=== PATIENT | female | born 1990 | race Two or more races ===

== ENCOUNTER 2020-03-30 09:10 | Emergency (ER) | payer OTHER ==
[~2020-03-30] VITALS: Ht 170.2 cm; Wt 67.1 kg
[2020-03-30 09:38] LABS: Basophils # (auto) 0 10 ^3/uL (0-0.2); Basophils % (auto) 0.5 % (0.0-2.0); Eosinophils # (auto) 0.1 10 ^3/uL (0-0.8); Eosinophils % (auto) 1.3 % (0.0-7.0); Hematocrit 41.8 % (36.0-46.0); Hemoglobin 14.3 g/dL (12.2-16.2); Lymphocytes % (auto) 32.9 % (10.0-50.0); Mean Corpuscular Hemoglobin 31.1 pg (28.0-32.0); Mean Corpuscular Hgb Conc. 34.1 g/dL (32.0-36.0); Mean Corpuscular Volume 91.1 fL (80.0-100.0); Monocytes # (auto) 0.6 10 ^3/uL (0-1.3); Monocytes % (auto) 9.2 % (0.0-12.0); Neutrophils # (auto) 3.4 10 ^3/uL (1.6-8.6); Neutrophils % (auto) 56.1 % (37.0-80.0); Nucleated Red Blood Cells % 0.1 %; Platelet Count (auto) 346 10^3/uL (140-450); Red Blood Cells 4.59 10^6/uL (4.0-5.20); Red Cell Distribution Width 14.4 % (11.8-14.3)
[2020-03-30] MEDS ORDERED: ACETAMINOPHEN 500 MG TAB PO ONE (09:45)
[2020-03-30 09:56] LABS: Albumin 3.8 g/dL (3.4-5.0); BUN/Creatinine Ratio 15.2; Calcium 8.8 mg/dL (8.5-10.1); Potassium 3.7 mmol/L (3.5-5.1)
[2020-03-30 09:59] LABS: Bilirubin, Total 0.7 mg/dL (0.2-1.0); Total Protein 7.3 g/dL (6.4-8.2)
[2020-03-30 10:14] LABS: INR 0.97 (0.9-1.15)
[2020-03-30 10:35] LABS: Urine Bacteria NONE SEEN /hpf (None Seen); Urine Blood TRACE /uL (Negative); Urine Specific Gravity 1.012 (1.001-1.035); Urine WBC 8 /hpf (0 - 5)
[2020-03-30 10:37] LABS: Amphetamine Screen, Urine NEGATIVE (NEGATIVE); Barbiturate Scree,Urine NEGATIVE (NEGATIVE); Benzodiazephine Screen, Urine NEGATIVE (NEGATIVE); Cannabinoid Screen, Urine POSITIVE (NEGATIVE); Cocaine Screen, Urine NEGATIVE (NEGATIVE); Opiate Scree,Urine NEGATIVE (NEGATIVE)
[2020-03-30 10:44] LABS: Phencyclidine Screen, Urine NEGATIVE (NEGATIVE)
[2020-03-30] MEDS ORDERED: KETOROLAC TROMETH 30 MG/ML 1ML VIAL IV ONE (10:45)
[2020-03-30] MEDS ORDERED: cefTRIAXone 1GM/50ML D5W 50 ML IV ONE (10:45)
[2020-03-30 12:03] VITALS: BP 112/59
== END 2020-03-30 12:37 | disposition home or self-care (01) ==
LOC: ER 09:10
DX: N39.0 Urinary tract infection, site not specified (principal); N93.8 Other specified abnormal uterine and vaginal bleeding; R55 Syncope and collapse
CPT/HCPCS: 36415; 70450; 80053; 80307; 81001; 84702; 85025; 85610; 93005; 96365; 96375; 99285; J0696; J1885

== ENCOUNTER 2021-09-18 13:53 | Emergency (ER) | payer OTHER ==
[~2021-09-18] VITALS: Ht 12.7 cm; Wt 70.9 kg
[2021-09-18 14:05] VITALS: BP 124/86
[2021-09-18] MEDS ORDERED: IBUPROFEN 800 MG TAB PO ONE (16:00)
[2021-09-18] MEDS ORDERED: IBUP800T27 PO ×2 (16:04→16:06)
== END 2021-09-18 16:24 | disposition home or self-care (01) ==
LOC: ER 13:53
DX: S63.91XA Sprain of unspecified part of right wrist and hand, initial encounter (principal); S53.401A Unspecified sprain of right elbow, initial encounter; Z79.1 Long term (current) use of non-steroidal anti-inflammatories (NSAID); W01.0XXA Fall on same level from slipping, tripping and stumbling without subsequent striking against object, initial encounter; Y93.89 Activity, other specified; Y92.89 Other specified places as the place of occurrence of the external cause; Y99.8 Other external cause status
CPT/HCPCS: 73080; 73130

== ENCOUNTER 2022-08-25 23:20 | Emergency (ER) | payer OTHER ==
[~2022-08-25] VITALS: Ht 348 cm; Wt 71.8 kg
[~2022-08-25 23:20] MED LIST: IBUP-1456 PO
[2022-08-25 23:40] VITALS: BP 118/72; PULSE 75; RESP 18; O2SAT 97
[2022-08-26 01:12] LABS: Basophils # (auto) 0 10 ^3/uL (0-0.2); Basophils % (auto) 0.5 % (0.0-2.0); Eosinophils # (auto) 0.1 10 ^3/uL (0-0.8); Hematocrit 39.3 % (36.0-46.0); Hemoglobin 13.4 g/dL (12.2-16.2); Lymphocytes # (auto) 2.5 10 ^3/uL (0.4-5.4); Lymphocytes % (auto) 38.2 % (10.0-50.0); Mean Corpuscular Hemoglobin 29.8 pg (28.0-32.0); Mean Corpuscular Hgb Conc. 33.9 g/dL (32.0-36.0); Mean Corpuscular Volume 87.9 fL (80.0-100.0); Monocytes # (auto) 0.6 10 ^3/uL (0-1.3); Monocytes % (auto) 9.2 % (0.0-12.0); Neutrophils # (auto) 3.4 10 ^3/uL (1.6-8.6); Neutrophils % (auto) 51.1 % (37.0-80.0); Nucleated Red Blood Cells % 0.1 %; Red Blood Cells 4.47 10^6/uL (4.0-5.20); Red Cell Distribution Width 14.1 % (11.8-14.3); White Blood Cell 6.6 10^3/uL (4.4-10.8)
[2022-08-26 01:35] LABS: Calcium 9.3 mg/dL (8.5-10.1); Potassium 3.6 mmol/L (3.5-5.1)
[2022-08-26 01:38] LABS: Bilirubin, Total 1.1 mg/dL (0.2-1.0); Total Protein 7.6 g/dL (6.4-8.2)
[2022-08-26 03:39] LABS: Urine Bacteria NONE SEEN /hpf (None Seen); Urine Blood Negative /uL (Negative); Urine Mucus FEW (None Seen); Urine Specific Gravity 1.034 (1.001-1.035); Urine WBC 2 /hpf (0 - 5)
== END 2022-08-26 06:25 | disposition left against medical advice (07) ==
LOC: ER 23:20
DX: R10.32 Left lower quadrant pain (principal); N92.6 Irregular menstruation, unspecified; R10.2 Pelvic and perineal pain; R53.1 Weakness; Z53.21 Procedure and treatment not carried out due to patient leaving prior to being seen by health care provider
CPT/HCPCS: 36415; 80053; 81001; 84702; 85025; 86850; 86900; 86901